=== PATIENT | female | born 1985 | race Caucasian/White ===

== ENCOUNTER 2017-03-01 15:02 | Emergency (ER) | payer SELFPAY ==
--- NOTE | 2017-03-01 16:33 | EDPHY ---
H & P Time Seen by Provider: 03/01/17 16:14 HPI/ROS: CHIEF COMPLAINT: Overdose, depression HISTORY OF PRESENT ILLNESS: Patient is a 31-year-old female who presents to the emergency department feeling depressed and suicidal. The patient recently moved [place] for her boyfriend. They broke up. She has been despondent. This morning she took Ambien x2. At noon she took Risperdal x9 (doses unknown) , Valium and Vicodin x2. Patient states she was trying to harm herself. She also made superficial cuts on her left wrist. Police placed the patient on a psychiatric hold. Patient denies any other ingestion. She states she drank alcohol last evening. She has had no previous suicide attempts. REVIEW OF SYSTEMS: My complete review of systems is negative except as mentioned in the HPI. ( Renea Workman) 2300 care assumed by me from Dr. Workman pending placement. 0700 PT signed out to DR Mera pending placement. No issues overnight during my care of this patient. (James Jon) Past Medical/Surgical History: Depression, bulimia Past surgical history: Noncontributory Social history: The patient drank alcohol last night. She denies drugs or tobacco. (Renea Workman) Physical Exam: Vitals noted GENERAL: Well-appearing, in no acute distress, alert. HEENT: Eyes normal to inspection, normal pharynx, no signs of dehydration. NECK: No thyromegaly, no lymphadenopathy, supple. RESPIRATORY: Clear to auscultation bilaterally, no rales, rhonchi or wheezing. CVS: Regular rate and rhythm, no rubs, murmurs, or gallops. ABDOMEN: Soft, nontender, nondistended, no organomegaly. BACK: Normal to inspection, no CVA tenderness. SKIN: Normal color, no rash, warm, dry. No pallor. EXTREMITIES: No pedal edema, no calf tenderness, no Homans sign or cords, no joint swelling. Patient's left wrist has superficial lacerations on the dorsal aspect. These do not need to be sutured. There is no visible foreign body. No surrounding redness. NEURO/PSYCH: Alert and oriented x3, normal mood and affect, normal motor sensory exam. No obvious cranial nerve deficit. (Renea Workman) Constitutional: Initial Vital Signs Temperature (C) 36.9 C 03/01/17 15:19 Heart Rate 89 03/01/17 15:19 Respiratory Rate 18 03/01/17 15:19 Blood Pressure 130/78 H 03/01/17 15:19 O2 Sat (%) 96 03/01/17 15:19 O2 Delivery Mode Room Air Allergies/Adverse Reactions: No Known Allergies Allergy (Unverified 03/01/17 15:16) Home Medications: Medication Instructions Recorded Risperdal 03/01/17 Xanax 03/01/17 Medical Decision Making ED Course/Re-evaluation: In the emergency department I discussed the plan with the patient. I answered all her questions. She is aware she is on a mental health hold. Laboratory studies including aspirin and Tylenol were ordered. EKG ordered. EKG shows normal sinus rhythm, normal rate, normal axis, normal intervals. There are no ST or T-wave abnormalities. EKG is normal as interpreted by me. 2000: Patient is doing well. No new complaints. She is stable. 2300: The patient is signed out at change of shift to Dr. Jon. Pt is stable. (Renea Workman) 0700: Patient signed out to me by Dr. Jon at shift change. Awaiting evaluation. Patient was evaluated by [facility]. Hold was vacated by Dr. Lacy. They are comfortable discharging the patient to return home to [place], [place]. She is no longer expressing suicidal ideation and is prosper for safety. ( Joanne Mera) Differential Diagnosis: My differential includes but is not limited to medication overdose, suicidal ideation, depression, sedation (Renea Workman) - Data Points Laboratory Results: Laboratory Results 03/01/17 15:02 03/01/17 15:02 Medications Given: Discontinued Medications Zolpidem Tartrate (Ambien) 5 mg PO EDNOW ONE Stop: 03/02/17 00:00 Last Admin: 03/01/17 23:59 Dose: 5 mg Departure - Departure Disposition: Home, Routine, Self-Care Clinical Impression: Suicidal ideation Condition: Good Instructions: Depression (ED) Additional Instructions: If you began to feel suicidal, feel like self-harm, have increasing depression, or other concerns, please contact mental health. Our understanding is that you will be returning to [place], [place] tomorrow. If you remain in the [place] area, please make arrangements to be seen by Psychiatry here. You been given referral to mental health. Referrals: [facility] [Other] - As per Instructions [facility] [Clinic] - As per Instructions
[2017-03-01 16:42] LABS: % IMMATURE GRANULYOCYTES 0.2 % (0.0-1.1); ABSOLUTE IMMATURE GRANULOCYTES 0.02 10^3/uL (0.00-0.10); ADD DIFF? NO; ADD MORPH? NO; ADD SCAN? NO; ATYPICAL LYMPHOCYTE FLAG 10 (0-99); FRAGMENT RBC FLAG 0 (0-99); HEMATOCRIT 40.5 % (38.0-47.0); HEMOGLOBIN 13.8 g/dL (12.6-16.3); LEFT SHIFT FLG 0 (0-99); LIPEMIA HEMOLYSIS FLAG 90 (0-99); MEAN CELL HEMOGLOBIN 30.5 pg (27.9-34.1); MEAN CELL HEMOGLOBIN CONCENTR. 34.1 g/dL (32.4-36.7); MEAN CELL VOLUME 89.4 fL (81.5-99.8); MEAN PLATELET VOLUME 10.3 fL (8.7-11.7); PLATELET CLUMPS FLAG 10 (0-99); PLATELET COUNT 273 10^3/uL (150-400); RED BLOOD CELL COUNT 4.53 10^6/uL (4.18-5.33); RED CELL DISTRIBUTION WIDTH 12.1 % (11.5-15.2)
[2017-03-01 16:47] LABS: ANION GAP 13 mEq/L (8-16); CALCIUM 9.8 mg/dL (8.5-10.4); CARBON DIOXIDE 23 mEq/l (22-31); CHLORIDE 106 mEq/L (97-110); CREATININE 0.7 mg/dL (0.6-1.0); GLOMERULAR FILTRATION RATE > 60; GLUCOSE 97 mg/dL (70-100); POTASSIUM 4.2 mEq/L (3.5-5.2); SALICYLATE < 1.0 mg/dL (2.0-20.0); SODIUM 142 mEq/L (134-144)
--- NOTE | 2017-03-01 16:56 | CPEKG ---
Heart Rate: 94 RR Interval: 638 P-R Interval: 160 QRSD Interval: 90 QT Interval: 368 QTC Interval: 461 P [place]: 41 QRS [place]: 69 T Wave [place]: 53 EKG Severity - NORMAL ECG - EKG Impression: SINUS RHYTHM Electronically Signed By: Renea Workman 01-Mar-2017 23:00:17
[2017-03-01 21:05] LABS: ALBUMIN 4.2 g/dL (3.5-5.0); BILIRUBIN,TOTAL 0.8 mg/dL (0.1-1.4); BILIRUBIN-CONJUGATED 0.4 mg/dL (0.0-0.5); BILIRUBIN-UNCONJUGATED 0.4 mg/dL (0.0-1.1)
[2017-03-01] MEDS ORDERED: ZOLPIDEM TARTRATE 5 MG TAB ONE (23:56)
[2017-03-01] MEDS: ZOLPIDEM TARTRATE 5 MG TAB PO ONE (23:59)
[2017-03-02] MEDS ORDERED: LORazepam 1 MG TAB ONE (10:21)
[2017-03-02 10:48] VITALS: BP 117/79; PULSE 90; RESP 16; TEMP 97.9; O2SAT 96
== END 2017-03-02 10:47 | disposition home or self-care (01) ==
DX: S61.512A Laceration without foreign body of left wrist, initial encounter (principal); T42.6X2A Poisoning by other antiepileptic and sedative-hypnotic drugs, intentional self-harm, initial encounter; T43.592A Poisoning by other antipsychotics and neuroleptics, intentional self-harm, initial encounter; T42.4X2A Poisoning by benzodiazepines, intentional self-harm, initial encounter; T39.1X2A Poisoning by 4-Aminophenol derivatives, intentional self-harm, initial encounter; X78.9XXA Intentional self-harm by unspecified sharp object, initial encounter
CPT/HCPCS: 80305; G0480